=== PATIENT | male | born 1980 | race Caucasian/White ===

== ENCOUNTER 2022-02-01 22:22 | Day surgery (SDCO) | payer OTHER ==
[~2022-02-01] VITALS: Ht 182.9 cm; Wt 111.1 kg
[2022-02-01 23:31] LABS: BASOPHIL 0.3 % (0-2); EOSINOPHIL 1.3 % (0-5); HCT 45.5 % (42.0-52.0); HGB 15.9 g/dl (13.2-18.0); LYMPHOCYTE 31.4 % (15-48); MCH 33.3 pg (25.0-31.0); MCHC 34.9 g/dL (32.0-36.0); MCV 95.4 fL (78.0-100.0); MONOCYTE 6.3 % (0-12); MPV 11.5 fL (6.0-9.5); NEUTROPHIL 59.7 % (41-80); NRBC 0; PLT 226 K/uL (150-400); RBC 4.77 M/uL (4.70-6.00); RDW 12.5 % (11.5-14.0); WBC 10.7 K/uL (4.0-10.5)
[2022-02-01 23:49] LABS: INR 0.93 (0.9-1.2); PROTHROMBIN TIME 12.2 SECONDS (11.9-13.9); PTT 22.2 SECONDS (24.9-34.6)
[2022-02-02 00:10] LABS: ALBUMIN 3.9 g/dL (3.4-5.0); BILIRUBIN - TOTAL 0.3 mg/dL (0.2-1.0); BUN/CREAT RATIO (CALC) 12.8 RATIO; CREATININE 0.86 mg/dL (0.67-1.17); GLOBULIN (CALCULATION) 3.2 g/dL; POTASSIUM 3.5 mmol/L (3.5-5.1); TOTAL PROTEIN 7.1 g/dL (6.4-8.2)
[2022-02-02 00:18] LABS: INFLUENZA A NAA NEGATIVE (NEGATIVE)
[2022-02-02 00:28] LABS: CORONAVIRUS 2019 SARS-COV-2 POSITIVE (NEGATIVE)
[2022-02-02 00:41] LABS: BILIRUBIN NEGATIVE (NEGATIVE); BLOOD NEGATIVE Ery/uL (NEGATIVE); CLARITY CLEAR (CLEAR); COLOR YELLOW (YELLOW); GLUCOSE (U) NORMAL (NORMAL); LEUKOCYTES NEGATIVE Leu/uL (NEGATIVE); NITRITE NEGATIVE (NEGATIVE); PROTEIN NEGATIVE (NEGATIVE); UROBILINOGEN 0.2 mg/dL (0.2-1.0)
[2022-02-02] MEDS ORDERED: ZOLOFT100 MG PO (04:24)
[2022-02-02 08:55] LABS: BILIRUBIN NEGATIVE (NEGATIVE); BLOOD NEGATIVE Ery/uL (NEGATIVE); CLARITY CLEAR (CLEAR); COLOR YELLOW (YELLOW); GLUCOSE (U) NORMAL (NORMAL); LEUKOCYTES NEGATIVE Leu/uL (NEGATIVE); NITRITE NEGATIVE (NEGATIVE); PROTEIN NEGATIVE (NEGATIVE); SPECIFIC GRAVITY >=1.030 (1.001-1.030); UROBILINOGEN 0.2 mg/dL (0.2-1.0)
--- NOTE | 2022-02-03 02:06 | NUR ---
1210- DANGLED AT BEDSIDE X 2 MINUTES, AMBULATED LENGTH OF ROOM X 2 WITH STAFF MEMBER USING WALKER, NO S0A NOTED AMBULATED WELL WITH STEADY GAIT.
[2022-02-03 06:26] LABS: BASOPHIL 0.3 % (0-2); EOSINOPHIL 0.8 % (0-5); HCT 41.1 % (42.0-52.0); HGB 14.1 g/dl (13.2-18.0); LYMPHOCYTE 31.2 % (15-48); MCH 33.1 pg (25.0-31.0); MCHC 34.3 g/dL (32.0-36.0); MCV 96.5 fL (78.0-100.0); MONOCYTE 8.5 % (0-12); MPV 11.7 fL (6.0-9.5); NEUTROPHIL 58.7 % (41-80); NRBC 0; PLT 197 K/uL (150-400); RBC 4.26 M/uL (4.70-6.00); RDW 12.8 % (11.5-14.0)
[2022-02-03 06:42] LABS: BUN/CREAT RATIO (CALC) 18.2 RATIO; CREATININE 0.77 mg/dL (0.67-1.17); POTASSIUM 3.5 mmol/L (3.5-5.1)
[2022-02-04 06:00] LABS: HCT 39.1 % (42.0-52.0); HGB 13.3 g/dl (13.2-18.0); MCH 32.9 pg (25.0-31.0); MCV 96.8 fL (78.0-100.0); MPV 11.9 fL (6.0-9.5); RBC 4.04 M/uL (4.70-6.00); RDW 12.6 % (11.5-14.0); WBC 7.5 K/uL (4.0-10.5)
[2022-02-04 06:21] LABS: BUN/CREAT RATIO (CALC) 12.3 RATIO; CREATININE 0.73 mg/dL (0.67-1.17); POTASSIUM 3.6 mmol/L (3.5-5.1)
[2022-02-04] MEDS ORDERED: OXY-IR 5MG5 MG PO (11:43)
== END 2022-02-04 13:25 | disposition home or self-care (01) ==
LOC: FER 22:22 → FMS 02-02 03:02
PROVIDERS: Family Medicine; Internal Medicine; Nurse Practitioner Acute Care; Student in an Organized Health Care Education/Training Program; ADMIT Internal Medicine
DX: K43.0 Incisional hernia with obstruction, without gangrene (principal); K56.609 Unspecified intestinal obstruction, unspecified as to partial versus complete obstruction; K91.89 Other postprocedural complications and disorders of digestive system; K56.7 Ileus, unspecified; U07.1 COVID-19; F41.8 Other specified anxiety disorders; F17.210 Nicotine dependence, cigarettes, uncomplicated; E87.2 Acidosis; F10.129 Alcohol abuse with intoxication, unspecified; M62.08 Separation of muscle (nontraumatic), other site; Z90.49 Acquired absence of other specified parts of digestive tract
CPT/HCPCS: 36415; 71045; 74019; 80048; 80053; 81003; 83605; 83690; 84145; 85025; 85610; 85730; 86850; 86900; 86901; 93005; 94010; 94760; C1781; G0378; G0480; J1100; J1170; J1650; J1885; J2405; J2543; J2704; J3010; J7030; J7120; U0002

== ENCOUNTER 2022-02-20 10:55 | Day surgery (SDCO) | payer OTHER ==
[~2022-02-20] VITALS: Ht 182.9 cm; Wt 102.8 kg
[~2022-02-20 10:55] MED LIST: OXY-IR 5MG5 MG PO; ZOLOFT100 MG PO
[2022-02-20 12:21] LABS: ALBUMIN 3.8 g/dL (3.4-5.0); BILIRUBIN - TOTAL 0.6 mg/dL (0.2-1.0); BUN/CREAT RATIO (CALC) 19.5 RATIO; CREATININE 0.77 mg/dL (0.67-1.17); GLOBULIN (CALCULATION) 3.4 g/dL; POTASSIUM 4.1 mmol/L (3.5-5.1); TOTAL PROTEIN 7.2 g/dL (6.4-8.2)
[2022-02-20 12:27] LABS: LACTIC ACID 1.5 mmol/L (0.4-1.9)
[2022-02-20 12:28] LABS: BASOPHIL 0.4 % (0-2); EOSINOPHIL 0.4 % (0-5); HCT 47.8 % (42.0-52.0); HGB 16.6 g/dl (13.2-18.0); LYMPHOCYTE 7.4 % (15-48); MCH 33.2 pg (25.0-31.0); MCHC 34.7 g/dL (32.0-36.0); MCV 95.6 fL (78.0-100.0); MONOCYTE 4.1 % (0-12); MPV 11.4 fL (6.0-9.5); NEUTROPHIL 86.4 % (41-80); NRBC 0; PLT 290 K/uL (150-400); RDW 12.8 % (11.5-14.0); WBC 13.3 K/uL (4.0-10.5)
[2022-02-20 15:13] LABS: BILIRUBIN NEGATIVE (NEGATIVE); BLOOD NEGATIVE Ery/uL (NEGATIVE); CLARITY CLEAR (CLEAR); COLOR YELLOW (YELLOW); GLUCOSE (U) NORMAL (NORMAL); LEUKOCYTES NEGATIVE Leu/uL (NEGATIVE); NITRITE NEGATIVE (NEGATIVE); PROTEIN NEGATIVE (NEGATIVE); pH 5.5 (5.0-9.0)
[2022-02-21 06:34] LABS: BASOPHIL 0.8 % (0-2); EOSINOPHIL 1.7 % (0-5); HCT 43.5 % (42.0-52.0); HGB 14.4 g/dl (13.2-18.0); LYMPHOCYTE 36.5 % (15-48); MCH 32.3 pg (25.0-31.0); MCHC 33.1 g/dL (32.0-36.0); MCV 97.5 fL (78.0-100.0); MPV 11.3 fL (6.0-9.5); NEUTROPHIL 49.7 % (41-80); NRBC 0; PLT 223 K/uL (150-400); RBC 4.46 M/uL (4.70-6.00); RDW 12.9 % (11.5-14.0); WBC 6.6 K/uL (4.0-10.5)
[2022-02-21 07:00] LABS: BUN/CREAT RATIO (CALC) 14.6 RATIO; CREATININE 0.82 mg/dL (0.67-1.17); POTASSIUM 3.6 mmol/L (3.5-5.1)
[2022-02-22 06:56] LABS: BASOPHIL 0.7 % (0-2); HCT 40.7 % (42.0-52.0); HGB 13.6 g/dl (13.2-18.0); LYMPHOCYTE 39.3 % (15-48); MCH 32.5 pg (25.0-31.0); MCHC 33.4 g/dL (32.0-36.0); MCV 97.1 fL (78.0-100.0); MONOCYTE 10.3 % (0-12); MPV 11.4 fL (6.0-9.5); NEUTROPHIL 44.3 % (41-80); NRBC 0; PLT 245 K/uL (150-400); RBC 4.19 M/uL (4.70-6.00); RDW 12.9 % (11.5-14.0); WBC 5.6 K/uL (4.0-10.5)
[2022-02-22 07:19] LABS: BUN/CREAT RATIO (CALC) 10.5 RATIO; CREATININE 0.76 mg/dL (0.67-1.17)
[2022-02-22] MEDS ORDERED: DOXYCYCLINE HY100 M2 PO (11:03)
[2022-02-22] MEDS ORDERED: ACIDOPHILUS CA1 EAC1 PO (11:10)
[2022-02-23 11:10] LABS: ADENOVIRUS F 40/41 Not Detected (Not Detected); ASTROVIRUS Not Detected (Not Detected); C DIFFICILE TOXIN A/B Not Detected (Not Detected); CAMPYLOBACTER Not Detected (Not Detected); CRYPTOSPORIDIUM Not Detected (Not Detected); CYCLOSPORA CAYETANENSIS Not Detected (Not Detected); ENTAMOEBA HISTOLYTICA Not Detected (Not Detected); ENTEROAGGREGATIVE E COLI Not Detected (Not Detected); ENTEROPATHOGENIC E COLI Not Detected (Not Detected); ENTEROTOXIGENIC E COLI Not Detected (Not Detected); GIARDIA LAMBLIA Not Detected (Not Detected); NOROVIRUS GI/GII Detected (Not Detected); PLESIOMONAS SHIGELLOIDES Not Detected (Not Detected); ROTAVIRUS A Not Detected (Not Detected); SALMONELLA Not Detected (Not Detected); SAPOVIRUS Not Detected (Not Detected); SHIGA-TOXIN-PRODUCING E COLI Not Detected (Not Detected); SHIGELLA/ENTEROINVASIVE E COLI Not Detected (Not Detected); VIBRIO Not Detected (Not Detected); VIBRIO CHOLERAE Not Detected (Not Detected); YERSINIA ENTEROCOLITICA Not Detected (Not Detected)
== END 2022-02-22 13:22 | disposition home or self-care (01) ==
LOC: FER 10:55 → FMS 14:09
PROVIDERS: Emergency Medicine; Internal Medicine; Surgery; ADMIT Allergy & Immunology Allergy
DX: R10.9 Unspecified abdominal pain (principal); R11.2 Nausea with vomiting, unspecified; R19.7 Diarrhea, unspecified; I25.10 Atherosclerotic heart disease of native coronary artery without angina pectoris; F17.210 Nicotine dependence, cigarettes, uncomplicated; Z95.5 Presence of coronary angioplasty implant and graft
CPT/HCPCS: 36415; 74019; 74250; 80048; 80053; 81003; 83605; 83690; 84145; 85025; C9113; G0378; J1170; J1885; J2270; J2405; J2550; J3480; J7030; J7120; Q9967